=== PATIENT | male | born 1970 | race Hispanic/Latino ===

== ENCOUNTER 2020-12-25 18:42 | Emergency (ER) | payer OTHER ==
[~2020-12-25] VITALS: Ht 165.1 cm; Wt 83.9 kg
[2020-12-25] MEDS ORDERED: DEXAMETHASONE 4 MG TAB PO STA (19:13)
[2020-12-25] MEDS ORDERED: DEXAMETHASONE SOD PHOS 10 MG/1 ML VIAL ONE (19:31)
== END 2020-12-25 19:47 | disposition home or self-care (01) ==
LOC: ER 19:13
DX: M54.50 Low back pain, unspecified (principal); E11.9 Type 2 diabetes mellitus without complications
CPT/HCPCS: 99282; J1100